=== PATIENT | female | born 1950 | race Caucasian/White ===

== ENCOUNTER 2016-11-08 07:11 | Emergency (ER) | payer MEDICARE, MEDICAID ==
[~2016-11-08 07:11] MED LIST: ATIVAN1 M2 PO; LANTUS100 U/ML SC; LITHIUM CARBON300 M2 PO; NEURONTIN100 M1 PO; NOVOLOG FL100 UNIT/1 SQ; NOVOLOG FL100 UNIT/2 SC; ZOFRAN ODT4 MG/UDTAB PO
[2016-11-08] MEDS ORDERED: CALCIUM 600 +1 EA11 PO (08:20)
[2016-11-08] MEDS ORDERED: TRESIBA FL200 UNIT/1 SC ×2 (08:25→09:21)
[2016-11-08] MEDS ORDERED: MIRALAX17 G2 PO (08:28)
[2016-11-08] MEDS ORDERED: XALATAN2.5 M1 EACH EYE (08:28)
[2016-11-08 08:35] LABS: BASO % 1.4 % (0-2); BASO ABSOLUTE COUNT 0.1 tho/cmm (0.0-0.2); EOS % 3.6 % (0-7); EOSINOPHIL ABSOLUTE COUNT 0.2 tho/cmm (0.0-0.7); HCT-HEMATOCRIT 32.8 % (34.0-49.0); HGB-HEMOGLOBIN 10.9 gm/dl (12.0-15.5); LYMPH % 31.9 % (20-45); LYMPH ABSOLUTE COUNT 1.3 tho/cmm (0.8-4.5); MCH (MEAN CORPUSCULAR HGB) 29.4 pg (28.0-32.0); MCHC MEAN CORPUSCULAR HGB CONC 33.2 % (32.0-36.0); MCV (MEAN CELL VOLUME) 88.4 fl (82.0-96.0); MEAN PLATELET VOLUME 8.8 cmc (9.4-12.4); MONO % 7.2 % (0-12); MONOCYTE ABSOLUTE COUNT 0.3 tho/cmm (0.0-1.2); NEUTROPHIL ABSOLUTE COUNT 2.3 tho/cmm (1.6-8.0); NEUTROPHIL-AUTOMATED 2.3 tho/cmm (1.6-8.0); NEUTROPHILS % 55.9 % (40-80); PLATELET COUNT 263 tho/cmm (150-450); RED BLOOD COUNT 3.71 mil/cmm (4.00-5.20); RED CELL DISTRIBUTION WIDTH 11.8 % (12.4-16.4); WHITE BLOOD COUNT 4.1 tho/cmm (4.0-10.0)
[2016-11-08 08:38] LABS: KETONE-BETA (WHOLE BLOOD) 0.1 mmol/L (0.0-0.6)
[2016-11-08 08:53] LABS: ALB/GLOB RATIO 1.1 (0.8-2.0); ALBUMIN 3.3 g/dl (3.5-5.0); ALKALINE PHOSPHATASE 83 U/L (33-138); ALT/SGPT 19 U/L (12-78); ANION GAP 9 mmol/L (0-20); AST/SGOT 13 U/L (10-40); BILIRUBIN,TOTAL 0.2 mg/dl (0-1.5); BLOOD UREA NITROGEN 19 mg/dl (6-24); CALCIUM 9.5 mg/dl (8.5-10.5); CARBON DIOXIDE-VENOUS 30 mmol/L (22-32); CHLORIDE 106 mmol/l (96-110); CREATININE 0.87 mg/dl (0.50-1.10); GLUCOSE 205 mg/dL (70-110); POTASSIUM 4.3 mmol/L (3.7-5.1); SODIUM 141 mmol/L (135-145); eGFR VALUE FOR BLACK 82 mL/Min
[2016-11-08] MEDS ORDERED: NOVOLOG FL100 UNIT/2 SC ×3 (09:19→09:20)
[2016-11-08] MEDS ORDERED: GLYCOLAX119 G1 PO (09:21)
== END 2016-11-08 09:44 ==
LOC: EDMED 07:11
PROVIDERS: Emergency Medicine
DX: E11.65 Type 2 diabetes mellitus with hyperglycemia (principal); Z79.84 Long term (current) use of oral hypoglycemic drugs; Z79.899 Other long term (current) drug therapy